=== PATIENT | female | born 1945 | race Caucasian/White ===

== ENCOUNTER 2020-07-24 08:45 | Emergency (ER) | payer OTHER ==
[~2020-07-24 08:45] MED LIST: ASPIRIN CHEWABL81 MG PO; CARDURA2 MG PO; COUMADIN 5MG TAB5 MG PO; COUMADIN7.5 MG PO; CRESTOR20 MG PO; DILTIAZEM 24HR300 M1 PO; FLONASE ALLER15.8 ML; FLORANEX TABLE1 EACH PO; ISOSORBIDE MONO60 MG PO; LANTUS **100 UNITS/ SC; LYRICA25 MG PO; MICON-GUARD 2% TOP; MIRALAX17 GM PO; NORVASC5 MG PO; NOVOLOG VI100 UNIT/1 SC; OXYCODONE IR 5MG5 MG PO; PROTONIX 40MG T40 MG PO; TOPROL XL 50 MG50 MG PO; TYLENOL #31 EACH PO; VITAMIN D325 MC2 PO; WELCHOL625 MG PO
[2020-07-24 09:32] LABS: BILIRUBIN NEGATIVE (NEGATIVE); BLOOD 3+ Ery/uL (NEGATIVE); CLARITY CLEAR (CLEAR); COLOR YELLOW (YELLOW); GLUCOSE (U) NORMAL (NORMAL); LEUKOCYTES 2+ Leu/uL (NEGATIVE); NITRITE POSITIVE (NEGATIVE); PROTEIN 2+ mg/dL (NEGATIVE); UROBILINOGEN 0.2 mg/dL (0.2-1.0)
[2020-07-24 09:38] LABS: BACTERIA 2+; URINARY RBC TNTC; URINARY WBC TNTC
[2020-07-24 10:03] LABS: CORONAVIRUS 2019 SARS-COV-2 NEGATIVE (NEGATIVE); INFLUENZA A NAA NEGATIVE (NEGATIVE)
[2020-07-24 10:38] LABS: BASOPHIL 0.3 % (0-2); EOSINOPHIL 0.1 % (0-7); HCT 32.2 % (37.0-47.0); HGB 9.8 g/dl (12.5-16.0); LYMPHOCYTE 2.4 % (15-48); MCH 27.6 pg (25.0-31.0); MCHC 30.4 g/dL (32.0-36.0); MCV 90.7 fL (78.0-100.0); MONOCYTE 1.4 % (0-12); MPV 9.5 fL (6.0-9.5); NRBC 0; PLT 313 K/uL (150-400); RBC 3.55 M/uL (4.20-5.40); RDW 16.1 % (11.5-14.0)
[2020-07-24 10:43] LABS: INR 2.67 (0.9-1.2); PROTHROMBIN TIME 27.1 SECONDS (11.4-13.6)
[2020-07-24 10:44] LABS: PTT 40.5 SECONDS (22.2-34.7)
[2020-07-24 10:45] LABS: NEUTROPHIL 95.1 % (41-80)
[2020-07-24 10:55] LABS: ALBUMIN 2.9 g/dL (3.4-5.0); BILIRUBIN - TOTAL 0.9 mg/dL (0.2-1.0); BUN/CREAT RATIO (CALC) 20.2 RATIO; C-REACTIVE PROTEIN 8.8 mg/dL (<=0.90); CREATININE 0.99 mg/dL (0.51-0.95); GLOBULIN (CALCULATION) 3.8 g/dL; POTASSIUM 3.9 mmol/L (3.5-5.1); TOTAL PROTEIN 6.7 g/dL (6.4-8.2)
[2020-07-24 11:02] LABS: LACTIC ACID 1.1 mmol/L (0.4-1.9)
[2020-07-24] MEDS ORDERED: KEFLEX250 MG PO (11:59)
[2020-07-24] MEDS ORDERED: DIFLUCAN 100MG100 MG PO (11:59)
== END 2020-07-24 13:10 | disposition home or self-care (01) ==
LOC: FER 08:45
PROVIDERS: Emergency Medicine
DX: N39.0 Urinary tract infection, site not specified (principal); R06.02 Shortness of breath; E11.9 Type 2 diabetes mellitus without complications; R60.0 Localized edema; I44.0 Atrioventricular block, first degree; I10 Essential (primary) hypertension; K21.9 Gastro-esophageal reflux disease without esophagitis; G47.33 Obstructive sleep apnea (adult) (pediatric); E66.9 Obesity, unspecified; Z99.89 Dependence on other enabling machines and devices; Z91.040 Latex allergy status; Z79.01 Long term (current) use of anticoagulants; Z95.2 Presence of prosthetic heart valve; Z79.899 Other long term (current) drug therapy; Z20.822 Contact with and (suspected) exposure to COVID-19
CPT/HCPCS: 36415; 71045; 80053; 81001; 83605; 83880; 84145; 84484; 85025; 85610; 85730; 86140; 87040; 87076; 87077; 87088; 87186; 93005; 94640; J0696; J7040; U0002

== ENCOUNTER 2020-07-27 16:48 | Inpatient (IN) | payer OTHER ==
[~2020-07-27 16:48] MED LIST changes: +DIFLUCAN 100MG100 MG PO; +KEFLEX250 MG PO
[2020-07-27 18:18] LABS: BASOPHIL 0.3 % (0-2); EOSINOPHIL 0.5 % (0-7); HCT 30.7 % (37.0-47.0); HGB 9.2 g/dl (12.5-16.0); MCH 27.1 pg (25.0-31.0); MCV 90.3 fL (78.0-100.0); MONOCYTE 6.5 % (0-12); MPV 9.8 fL (6.0-9.5); NEUTROPHIL 86.9 % (41-80); NRBC 0; PLT 303 K/uL (150-400); RDW 16.2 % (11.5-14.0); WBC 12.4 K/uL (4.0-10.5)
[2020-07-27 19:03] LABS: ALBUMIN 2.7 g/dL (3.4-5.0); BILIRUBIN - TOTAL 0.2 mg/dL (0.2-1.0); BUN/CREAT RATIO (CALC) 26.5 RATIO; CREATININE 1.02 mg/dL (0.51-0.95); GLOBULIN (CALCULATION) 4.8 g/dL; POTASSIUM 4.5 mmol/L (3.5-5.1); TOTAL PROTEIN 7.5 g/dL (6.4-8.2)
[2020-07-27] MEDS ORDERED: CARDURA2 MG PO (19:21)
[2020-07-27] MEDS ORDERED: DILTIAZEM 24HR360 MG PO (19:21)
[2020-07-27] MEDS ORDERED: FEOSOL325 MG PO (19:21)
[2020-07-27] MEDS ORDERED: LASIX40 MG PO (19:21)
[2020-07-27] MEDS ORDERED: LOPRESSOR50 MG PO (19:22)
[2020-07-27] MEDS ORDERED: DAILY MULTIPLE1 EAC1 PO (19:23)
[2020-07-27] MEDS ORDERED: SPIRONOLACTONE50 MG PO (19:24)
[2020-07-27] MEDS ORDERED: BENICAR *OUT OF20 MG PO (19:24)
[2020-07-27] MEDS ORDERED: NITROQUIK SL0.4 MG SL (19:24)
[2020-07-27] MEDS ORDERED: CARAFATE1 GM PO (19:25)
[2020-07-27] MEDS ORDERED: WARFARIN SODIUM5 MG PO (19:27)
[2020-07-27] MEDS ORDERED: WARFARIN SODIU7.5 MG PO (19:28)
[2020-07-27] MEDS ORDERED: CEPHALEXIN250 MG PO (19:30)
[2020-07-27] MEDS ORDERED: BENTYL10 MG PO (19:31)
[2020-07-27] MEDS ORDERED: WELCHOL625 MG PO (19:36)
[2020-07-27 21:12] LABS: INR 3.5 (0.9-1.2); PROTHROMBIN TIME 33.5 SECONDS (11.4-13.6)
[2020-07-28 13:37] LABS: INR 3.17 (0.9-1.2)
[2020-07-29 06:09] LABS: BASOPHIL 0.4 % (0-2); EOSINOPHIL 2.1 % (0-7); HCT 26.8 % (37.0-47.0); LYMPHOCYTE 13.3 % (15-48); MCH 26.9 pg (25.0-31.0); MCHC 29.9 g/dL (32.0-36.0); MCV 90.2 fL (78.0-100.0); MONOCYTE 6.3 % (0-12); MPV 9.3 fL (6.0-9.5); NEUTROPHIL 76.2 % (41-80); NRBC 0; PLT 271 K/uL (150-400); RBC 2.97 M/uL (4.20-5.40); RDW 16.6 % (11.5-14.0); WBC 8.9 K/uL (4.0-10.5)
[2020-07-29 06:29] LABS: INR 3.01 (0.9-1.2); PROTHROMBIN TIME 29.8 SECONDS (11.4-13.6)
[2020-07-29 06:56] LABS: BUN/CREAT RATIO (CALC) 18.5 RATIO; CREATININE 0.92 mg/dL (0.51-0.95); POTASSIUM 4.6 mmol/L (3.5-5.1)
[2020-07-30 04:32] LABS: INR 3.37 (0.9-1.2); PROTHROMBIN TIME 32.5 SECONDS (11.4-13.6)
--- NOTE | 2020-07-30 15:16 | NUR ---
07/30/20 Ms. Aldana lives alone and was independent prior to admission. She does not have any DME. Ms. Aldana is current with [facility] . [facility] was notified of admission via [employer]. - Ms. Aldana will require IV antibiotics 3 times per day for 10 days following discharge which is anticipated for 08/02. Patient's son, Oren Aldana, would like Ms. Aldana to go to a [place] for IV and physical therapy. He prefers [facility] and [facility] as the second choice. A referral has been made to [facility]. Pt has [employer] insurance which requires pre-auth.
--- NOTE | 2020-07-30 20:50 | NUR ---
1300 PT WAS ORDERED A MIDLINE CATHETER TO BE INSERTED FOR IV ANTIBIOTICS. PROCEDURE WAS EXPLAINED TO PATIENT ALONG WITH RISKS AND BENEFITS. PT AGREED TO HAVE THE MIDLINE INSERTED. THE RIGHT ARM WAS POSITIONED TO THE PATIENT SIDE. THE US MACHINE WAS USED TO LOCATE THE BASILIC VEIN. THEN THE AREA WAS CLEANSED WITH CHLORAPREP. THE PT'S ARM WAS DRAPED WITH STERILE TOWELS. ONCE AGAIN THE RIGHT UPPER ARM BASILIC VEIN WAS VISUALIZED WITH THE US MACHINE AND 1 #21 G GUIDE NEEDLE WAS INSERTED INTO THE VEIN, THERE WAS BLOOD RETURN, THE GUIDE WIRE WAS INSERTED ABOUT 2-3 CM BUT WOULD NOT THREAD ANY FURTHER.THE GUIDE NEEDLE AND WIRE WERE REMOVED AND ANOTHER ATTEMPT WAS MADE IN THE RIGHT UPPER ARM WITHOUT SUCCESS, I THEN MOVED TO THE LEFT UPPER ARM AND POSITIONED OUT TO THE SIDE. THE AREA WAS CLEANSED WITH CHLORAPREP AND THE VEIN WAS LOCATED WITH THE US MACHINE ONCE AGAIN. THE AREA WAS ANESTHETIZED WITH 1% LIDOCAINE. A #21 GAUGE GUIDE NEEDLE WAS INSERTED INTO THE LEFT UPPER ARM BASILIC VEIN WITH GOOD BLOOD RETURN AND THEN THE GUIDE WIRE WAS THREADED THROUGHT THE GUDIE NEEDLE , THE GUIDE NEEDLE WAS THEN REMOVED. THE MID LINE CATHETER WAS FLUSHED WITH SALINE AND THEN THREADED OVER THE GUIDE WIRE INTO PLACE. A LOOP WAS PLACED ONTO THE END OF THE MIDLINE CATHETER WITH AN END CAP. A STERILE DRESSING WAS PLACED OVER THE MIDLINE CATHETER. THE CATHETER FLUSHED EASILY AND HAD A GOOD BLOOD RETURN. REPORT WAS GIVEN TO Joselyn BLUE IN TCU. THE PT TOLERATED THE PROCEDURE WELL. 1815 RETURNED BECAUSE THE MIDLINE WAS REPORTED TO BE LEAKING, AND THERE WAS NO BLOOD RETURN. THE MIDLINE CATHETER DRESSING WAS REMOVED AND THE MIDLINE CATHETER WAS RETRACTED ABOUT 2CM, THE CATHETER WAS ABLE TO BE FLUSHED EASILY AT THIS POINT AND HAD A GOOD BLOOD RETURN, A NEW STERILE DRESSING WAS APLIED OVER THE MIDLINE. PT TOLERATED PROCEDURE WELL.
[2020-07-31 05:57] LABS: INR 3.54 (0.9-1.2); PROTHROMBIN TIME 33.8 SECONDS (11.4-13.6)
[2020-08-01 06:40] LABS: BASOPHIL 0.5 % (0-2); EOSINOPHIL 4.7 % (0-7); HCT 28.3 % (37.0-47.0); HGB 8.6 g/dl (12.5-16.0); LYMPHOCYTE 11.5 % (15-48); MCHC 30.4 g/dL (32.0-36.0); MCV 88.7 fL (78.0-100.0); MONOCYTE 4.6 % (0-12); NEUTROPHIL 76.1 % (41-80); NRBC 0.3; PLT 429 K/uL (150-400); RBC 3.19 M/uL (4.20-5.40); RDW 16.4 % (11.5-14.0); WBC 11.6 K/uL (4.0-10.5)
[2020-08-01 06:46] LABS: INR 3.31 (0.9-1.2); PROTHROMBIN TIME 32.1 SECONDS (11.4-13.6)
[2020-08-01 06:53] LABS: BUN/CREAT RATIO (CALC) 19.8 RATIO; CREATININE 0.81 mg/dL (0.51-0.95); MAGNESIUM 1.7 mg/dL (1.8-2.4); POTASSIUM 3.9 mmol/L (3.5-5.1)
[2020-08-02 07:11] LABS: BASOPHIL 0.5 % (0-2); EOSINOPHIL 5.3 % (0-7); HCT 30.6 % (37.0-47.0); HGB 9.1 g/dl (12.5-16.0); LYMPHOCYTE 10.9 % (15-48); MCH 26.5 pg (25.0-31.0); MCHC 29.7 g/dL (32.0-36.0); MCV 89.2 fL (78.0-100.0); MONOCYTE 4.8 % (0-12); MPV 8.8 fL (6.0-9.5); NEUTROPHIL 76.1 % (41-80); NRBC 0; PLT 426 K/uL (150-400); RBC 3.43 M/uL (4.20-5.40); RDW 16.4 % (11.5-14.0); WBC 12.3 K/uL (4.0-10.5)
[2020-08-02 07:26] LABS: INR 2.85 (0.9-1.2); PROTHROMBIN TIME 28.5 SECONDS (11.4-13.6)
[2020-08-02 07:30] LABS: BUN/CREAT RATIO (CALC) 20.2 RATIO; CREATININE 0.89 mg/dL (0.51-0.95); POTASSIUM 3.8 mmol/L (3.5-5.1)
[2020-08-02 07:32] LABS: MAGNESIUM 2.3 mg/dL (1.8-2.4)
[2020-08-02 12:45] LABS: RETICULOCYTE COUNT 4.4 % (1.0-2.0)
[2020-08-02 13:25] LABS: FOLIC ACID (SERUM) 18.1 ng/mL (8.6-58.9)
[2020-08-02 21:27] LABS: BILIRUBIN NEGATIVE (NEGATIVE); BLOOD 2+ Ery/uL (NEGATIVE); CLARITY CLEAR (CLEAR); COLOR YELLOW (YELLOW); GLUCOSE (U) NORMAL (NORMAL); LEUKOCYTES NEGATIVE Leu/uL (NEGATIVE); NITRITE NEGATIVE (NEGATIVE); PROTEIN 2+ mg/dL (NEGATIVE); SPECIFIC GRAVITY 1.025 (1.001-1.030); UROBILINOGEN 0.2 mg/dL (0.2-1.0); pH 5.5 (5.0-9.0)
[2020-08-02 21:35] LABS: AMORPHOUS URATES CRYSTALS TRACE; BACTERIA 1+; MUCOUS TRACE
[2020-08-03 06:52] LABS: BASOPHIL 0.4 % (0-2); EOSINOPHIL 0.9 % (0-7); HCT 32.2 % (37.0-47.0); HGB 9.6 g/dl (12.5-16.0); LYMPHOCYTE 5.2 % (15-48); MCH 26.8 pg (25.0-31.0); MCHC 29.8 g/dL (32.0-36.0); MCV 89.9 fL (78.0-100.0); MONOCYTE 2.7 % (0-12); MPV 8.7 fL (6.0-9.5); NEUTROPHIL 89.2 % (41-80); PLT 453 K/uL (150-400); RBC 3.58 M/uL (4.20-5.40); WBC 17.3 K/uL (4.0-10.5)
[2020-08-03 07:02] LABS: INR 2.86 (0.9-1.2); PROTHROMBIN TIME 28.6 SECONDS (11.4-13.6)
[2020-08-03 07:15] LABS: ALBUMIN 2.3 g/dL (3.4-5.0); BILIRUBIN - TOTAL 0.3 mg/dL (0.2-1.0); BUN/CREAT RATIO (CALC) 23.1 RATIO; CREATININE 0.91 mg/dL (0.51-0.95); GLOBULIN (CALCULATION) 4.6 g/dL; POTASSIUM 4.4 mmol/L (3.5-5.1); TOTAL PROTEIN 6.9 g/dL (6.4-8.2)
[2020-08-03 08:10] LABS: BAND 1 % (0-10); BASOPHIL(M) 1 % (0-2); LYMPHOCYTE(M) 5 % (15-48); MONOCYTE(M) 3 % (0-12); NEUTROPHILS(M) 90 % (41-80); TOTAL CELL COUNT 100
[2020-08-03 08:11] LABS: PLATELET ESTIMATE NORMAL; PLATELET MORPHOLOGY NORMAL
[2020-08-03 09:36] LABS: IRON % SATURATION 11.4 %SAT (20-50)
--- NOTE | 2020-08-03 10:40 | NUR ---
08/12/20 The Jovan family changed their preference of [facility]et from [facility] to [facility]. [facility] accepted and secured insurance approval. However, Ms. Aldana will be transferred to [facility]. Esteban Mamieshabnam was informed of [facility]'s acceptance for future reference. [facility] was also informed of the transfer to [facility].
== END 2020-08-03 17:26 | disposition other institution (70) | DRG 193 ==
LOC: FTCU 16:48 → FMS 07-31 14:40
PROVIDERS: Internal Medicine; Nurse Practitioner; ADMIT Internal Medicine
PROC: 05HY33Z Insertion of Infusion Device into Upper Vein, Percutaneous Approach (ICD-10-PCS; principal; 2020-07-30)
PROC: B24BZZZ Ultrasonography of Heart with Aorta (ICD-10-PCS; 2020-07-30)
DX: J18.9 Pneumonia, unspecified organism (principal); J81.0 Acute pulmonary edema; Z68.41 Body mass index [BMI] 40.0-44.9, adult; D50.9 Iron deficiency anemia, unspecified; E11.9 Type 2 diabetes mellitus without complications; G47.30 Sleep apnea, unspecified; E66.01 Morbid (severe) obesity due to excess calories; E78.5 Hyperlipidemia, unspecified; K21.9 Gastro-esophageal reflux disease without esophagitis; I11.0 Hypertensive heart disease with heart failure; I50.9 Heart failure, unspecified; Z20.822 Contact with and (suspected) exposure to COVID-19; Z79.01 Long term (current) use of anticoagulants; Z95.2 Presence of prosthetic heart valve; Z79.4 Long term (current) use of insulin; Z90.710 Acquired absence of both cervix and uterus; Z90.49 Acquired absence of other specified parts of digestive tract; Z98.51 Tubal ligation status; Z98.42 Cataract extraction status, left eye; Z98.41 Cataract extraction status, right eye; Z98.890 Other specified postprocedural states; Z79.899 Other long term (current) drug therapy
CPT/HCPCS: 36415; 71045; 80048; 80053; 81001; 82607; 82746; 82962; 83540; 83550; 83605; 83735; 83880; 84145; 84484; 85025; 85610; 85730; 86140; 87040; 87070; 87076; 87077; 87088; 87186; 87205; 93005; 94640; 94668; 97162; 97165; 97535; C1751; J0696; J1335; J1642; J1940; J1956; J2185; J3475; J7030; J7040; U0002

== ENCOUNTER 2020-10-14 13:54 | Emergency (ER) | payer OTHER ==
[~2020-10-14 13:54] MED LIST changes: +BENICAR *OUT OF20 MG PO; +BENTYL10 MG PO; +CARAFATE1 GM PO; +CEPHALEXIN250 MG PO; +DAILY MULTIPLE1 EAC1 PO; +DILTIAZEM 24HR360 MG PO; +FEOSOL325 MG PO; +LASIX40 MG PO; +LOPRESSOR50 MG PO; +NITROQUIK SL0.4 MG SL; +SPIRONOLACTONE50 MG PO; +WARFARIN SODIU7.5 MG PO; +WARFARIN SODIUM5 MG PO
[2020-10-14 14:35] LABS: BASOPHIL 0.5 % (0-2); EOSINOPHIL 1.1 % (0-7); HCT 39.3 % (37.0-47.0); HGB 12.9 g/dl (12.5-16.0); LYMPHOCYTE 9.4 % (15-48); MCH 27.5 pg (25.0-31.0); MCHC 32.8 g/dL (32.0-36.0); MCV 83.8 fL (78.0-100.0); MONOCYTE 5.4 % (0-12); MPV 8.9 fL (6.0-9.5); NEUTROPHIL 83.3 % (41-80); NRBC 0; PLT 287 K/uL (150-400); RBC 4.69 M/uL (4.20-5.40); RDW 14.5 % (11.5-14.0); WBC 10.2 K/uL (4.0-10.5)
[2020-10-14 14:56] LABS: INR 2.06 (0.9-1.2); PROTHROMBIN TIME 22.1 SECONDS (11.4-13.6); PTT 37.5 SECONDS (22.2-34.7)
[2020-10-14 14:57] LABS: D-DIMER 0.45 ug/mLFEU (0.00-0.41)
[2020-10-14 15:09] LABS: ALBUMIN 3.3 g/dL (3.4-5.0); BILIRUBIN - TOTAL 0.3 mg/dL (0.2-1.0); BUN/CREAT RATIO (CALC) 24.2 RATIO; CREATININE 0.91 mg/dL (0.51-0.95); GLOBULIN (CALCULATION) 3.5 g/dL; MAGNESIUM 1.7 mg/dL (1.8-2.4); POTASSIUM 4.3 mmol/L (3.5-5.1); TOTAL PROTEIN 6.8 g/dL (6.4-8.2)
[2020-10-14 15:16] LABS: PRO-BNP 1299 pg/mL (<125)
== END 2020-10-14 18:30 | disposition home or self-care (01) ==
LOC: FER 13:54
PROVIDERS: Emergency Medicine
DX: R07.89 Other chest pain (principal); R91.1 Solitary pulmonary nodule; E07.89 Other specified disorders of thyroid; I44.0 Atrioventricular block, first degree; I10 Essential (primary) hypertension; E11.9 Type 2 diabetes mellitus without complications; Z87.442 Personal history of urinary calculi; Z79.4 Long term (current) use of insulin; Z79.899 Other long term (current) drug therapy; Z79.01 Long term (current) use of anticoagulants
CPT/HCPCS: 36415; 71045; 71275; 80053; 83735; 83880; 84484; 85025; 85379; 85610; 85730; 93005; J2405; Q9967